=== PATIENT | female | born 1940 | race Caucasian/White ===

== ENCOUNTER 2025-04-15 14:51 | Emergency (ER) | payer OTHER, MEDICARE, BC ==
[2025-04-15 15:42] LABS: BASOPHILS ABSOLUTE AUTO 0.03 K/uL (0.00-0.10); BASOPHILS PERCENT AUTO 0.8 % (0.1-1.3); EOSINOPHILS PERCENT AUTO 0.3 % (0.0-5.4); HEMATOCRIT 28.9 % (34.3-46.0); HEMOGLOBIN 9.1 g/dL (11.2-15.5); IMMATURE GRAN PERCENT AUTO 0.5 % (0.0-0.7); LYMPHOCYTES ABSOLUTE AUTO 0.58 K/uL (0.8-3.3); LYMPHOCYTES PERCENT AUTO 14.9 % (11.4-47.7); MEAN CORPUSCULAR HEMOGLOBIN 34.9 pg (31.6-35.5); MEAN CORPUSCULAR HGB CONC 31.5 g/dL (31.6-35.5); MEAN CORPUSCULAR VOLUME 110.7 fL (81.4-99.0); MONOCYTES ABSOLUTE AUTO 0.21 K/uL (0.20-0.90); MONOCYTES PERCENT AUTO 5.4 % (3.3-12.6); NEUTROPHILS ABSOLUTE AUTO 3.04 K/uL (1.0-7.6); NEUTROPHILS PERCENT AUTO 78.1 % (40.0-78.1); PLATELET COUNT,PLT 70 K/uL (130-375); WHITE BLOOD CELL COUNT,WBC 3.9 K/uL (3.2-11.0)
[2025-04-15 15:49] LABS: ANION GAP 7.7 mmol/L (5.0-14.0); CALCIUM 9.2 mg/dL (8.5-10.1); CREATININE 0.9 mg/dL (0.6-1.0); EST CRCL DRUG DOSING (CG) 32.23 mL/min; POTASSIUM,K 4.6 mmol/L (3.6-5.2)
[2025-04-15 15:50] LABS: INR 1.1; PROTHROMBIN TIME 11.2 sec (9.2-10.6)
[2025-04-15 16:00] LABS: EOSINOPHILS ABSOLUTE AUTO 0.01 K/uL (0.00-0.40)
[2025-04-15 16:01] LABS: IMMATURE GRAN ABSOLUTE AUTO 0.02 K/uL (0.00-0.23)
[2025-04-15 16:02] LABS: RED BLOOD CELL COUNT 2.61 M/uL (3.77-5.24)
== END 2025-04-15 17:10 | disposition home or self-care (01) ==
LOC: JP.ED 14:51
DX: S09.90XA Unspecified injury of head, initial encounter (principal); Z88.8 Allergy status to other drugs, medicaments and biological substances; Z79.01 Long term (current) use of anticoagulants; Z79.890 Hormone replacement therapy; Z79.899 Other long term (current) drug therapy; V87.8XXA Person injured in other specified noncollision transport accidents involving motor vehicle (traffic), initial encounter
CPT/HCPCS: 36415; 70450; 72125; 76377; 80048; 85025; 85610; 99283; 99284